=== PATIENT | female | born 1940 | race Caucasian/White ===

== ENCOUNTER 2022-01-19 17:55 | Emergency (ER) | payer MEDICARE, OTHER ==
[~2022-01-19 17:55] MED LIST: ALENDRONATE SOD70 MG PO; ALLOPURINOL300 MG PO; ASPIRIN CHEWABL81 MG PO; CALTRATE 600 +1 EAC1 PO; DIAZEPAM 2MG TAB2 MG PO; GLUCOTROL5 MG PO; HCTZ25 MG PO; ISOSORBIDE DINI20 M1 PO; ISOSORBIDE MONO60 MG PO; LOPID600 MG PO; LOPRESSOR25 MG PO; METFORMIN HCL500 MG PO; MULTIVITAMINS1 EAC1 PO; NEURONTIN300 MG PO; NORVASC5 MG PO; PLAVIX75 MG PO; PROTONIX 40MG T40 MG PO; PROZAC20 MG PO; SUCRALFATE1 GM PO; ZOCOR40 MG PO
== END 2022-01-19 20:21 | disposition home or self-care (01) ==
LOC: FER 17:55
DX: S01.01XA Laceration without foreign body of scalp, initial encounter (principal); I10 Essential (primary) hypertension; E11.9 Type 2 diabetes mellitus without complications; I25.2 Old myocardial infarction; Z23 Encounter for immunization; Z88.5 Allergy status to narcotic agent; W19.XXXA Unspecified fall, initial encounter; Y93.89 Activity, other specified; Y92.009 Unspecified place in unspecified non-institutional (private) residence as the place of occurrence of the external cause
CPT/HCPCS: 70450; 90471; 90715; J2001

== ENCOUNTER 2022-01-27 19:34 | Emergency (ER) | payer MEDICARE, OTHER ==
[2022-01-27] MEDS ORDERED: ULTRAM50 MG PO (20:46)
== END 2022-01-27 21:12 | disposition home or self-care (01) ==
LOC: FER 19:34
DX: M25.552 Pain in left hip (principal); I10 Essential (primary) hypertension; E11.40 Type 2 diabetes mellitus with diabetic neuropathy, unspecified; Z88.5 Allergy status to narcotic agent; Z88.8 Allergy status to other drugs, medicaments and biological substances; W19.XXXA Unspecified fall, initial encounter
CPT/HCPCS: 73502

== ENCOUNTER 2022-04-11 09:05 | Emergency (ER) | payer MEDICARE, OTHER ==
[~2022-04-11] VITALS: Ht 152.4 cm; Wt 60.3 kg
[~2022-04-11 09:05] MED LIST changes: +ULTRAM50 MG PO
[2022-04-11] MEDS ORDERED: NITROGLYCERIN0.4 MG SL (09:47)
[2022-04-11 11:41] LABS: BILIRUBIN NEGATIVE (NEGATIVE); BLOOD TRACE-INTACT Ery/uL (NEGATIVE); CLARITY CLEAR (CLEAR); COLOR YELLOW (YELLOW); GLUCOSE (U) NORMAL (NORMAL); LEUKOCYTES NEGATIVE Leu/uL (NEGATIVE); NITRITE NEGATIVE (NEGATIVE); PROTEIN TRACE (LOW) mg/dL (NEGATIVE); SPECIFIC GRAVITY 1.015 (1.001-1.030); UROBILINOGEN 0.2 mg/dL (0.2-1.0)
[2022-04-11 11:41] LABS: BASOPHIL 0.2 % (0-2); EOSINOPHIL 0 % (0-7); HCT 33.8 % (37.0-47.0); HGB 10.9 g/dl (12.5-16.0); LYMPHOCYTE 6.7 % (15-48); MCH 31.4 pg (25.0-31.0); MCHC 32.2 g/dL (32.0-36.0); MCV 97.4 fL (78.0-100.0); MPV 12.3 fL (6.0-9.5); NRBC 0; PLT 163 K/uL (150-400); RBC 3.47 M/uL (4.20-5.40); WBC 11.6 K/uL (4.0-10.5)
[2022-04-11 11:47] LABS: NEUTROPHIL 90.6 % (41-80)
[2022-04-11 12:02] LABS: BACTERIA TRACE; SQUAMOUS EPITHELIAL CELLS RARE; URINARY WBC RARE
[2022-04-11 12:06] LABS: ALBUMIN 3.9 g/dL (3.4-5.0); BILIRUBIN - TOTAL 0.4 mg/dL (0.2-1.0); BUN/CREAT RATIO (CALC) 23.3 RATIO; CREATININE 1.8 mg/dL (0.51-0.95); GLOBULIN (CALCULATION) 3.4 g/dL; POTASSIUM 5.1 mmol/L (3.5-5.1); TOTAL PROTEIN 7.3 g/dL (6.4-8.2)
== END 2022-04-11 16:40 | disposition other institution (70) ==
LOC: FER 09:05
PROVIDERS: Emergency Medicine
DX: M97.02XA Periprosthetic fracture around internal prosthetic left hip joint, initial encounter (principal); I10 Essential (primary) hypertension; E11.9 Type 2 diabetes mellitus without complications; Z79.84 Long term (current) use of oral hypoglycemic drugs; Z88.5 Allergy status to narcotic agent; Z88.8 Allergy status to other drugs, medicaments and biological substances
CPT/HCPCS: 36415; 73552; 80053; 81001; 85025; 96374; 96375; 96376; J1170; J2405